=== PATIENT | female | born 1965 | race Caucasian/White ===

== ENCOUNTER 2025-04-01 10:57 | Emergency (ER) | payer BC ==
[2025-04-01 11:49] LABS: Absolute Lymphocytes (CBC) 1.4 K/uL (0.7-4.9); Hematocrit 32.1 % (36.0-45.0); Hemoglobin 10.6 g/dL (12.0-15.0); MCH 26.8 pg (27.0-35.0); MCHC 33.1 g/dL (32.0-36.0); MCV 81.1 fL (80-100); MPV 9.6 fL (7.6-11.3); Nucleated RBC Absolute Count 0.0 (0-0); Nucleated Red Blood Cells % 0.0 % (0-0); RBC Red Blood Cell Count 3.96 M/uL (3.86-4.86); White Blood Count 8.10 thou/uL (4.3-10.9)
[2025-04-01 12:00] LABS: PT Prothrombin Time 12.2 SECONDS (10-13.0); PTT, Activated Partial Thromb 24.2 SECONDS (27.2-37.4); Protime INR 1.08
[2025-04-01 12:10] LABS: ALT/SGPT 14 U/L (13-56); AST/SGOT 13 U/L (15-37); Alkaline Phosphatase 67 U/L (45-117); Anion Gap 11.7 mEq/L (5.0-15.0); BUN Blood Urea Nitrogen 32 mg/dL (7-18); Bilirubin Indirect, Calculated ND mg/dL (0.2-0.8); Glucose Level 341 mg/dL (74-106); Potassium 3.7 mEq/L (3.5-5.1)
[2025-04-01 12:11] LABS: Albumin 2.1 g/dL (3.4-5.0); Albumin/Globulin Ratio 0.6 (1.1-1.8); Globulin 3.5 g/dL (2.3-3.5)
--- NOTE | 2025-04-01 12:13 | ER ---
Nurse's Notes [facility] Name: Paty Cunningham Age: 59 yrs Sex: Female : 1965 Arrival Date: 04/01/2025 Time: 10:56 Bed 19 Private MD: Diagnosis: Suicidal ideations Presentation: 04/01 11:08 Acuity: CHANTAL 2 iw 11:08 Chief complaint: Patient states: has not been sleeping or eating, feels depressed, and iw suicidal, states she has been out of her meds for a month, wants to be transferred to [facility]. Coronavirus screen: At this time, the client does not indicate any symptoms associated with coronavirus-19. Ebola Screen: No symptoms or risks identified at this time. Initial Sepsis Screen: Does the patient meet any 2 criteria? No. Patient's initial sepsis screen is negative. Does the patient have a suspected source of infection? No. Patient's initial sepsis screen is negative. Risk Assessment: Do you want to hurt yourself or someone else? Patient reports desire/thoughts of hurting themselves or someone else. Provider notified. Onset of symptoms was April 01, 2025. 11:08 Method Of Arrival: EMS iw Historical: - Allergies: 11:49 No Known Allergies; iw - Home Meds: 11:46 amlodipine 5 mg tablet 1 tab daily for Hypertension [Active]; buspirone 5 mg Oral iw tablet 1 tab 3 times per day [Active]; fluoxetine 40 mg Oral capsule 1 cap daily [Active]; Lantus U-100 Insulin 100 unit/mL Sub-Q solution 25 units every morning for Type 1 Diabetes Mellitus [Active]; trazodone 50 mg Oral tablet 1 tab every day at bedtime [Active]; pravastatin 40 mg Oral tablet 1 tab daily [Active]; lisinopril 10 mg Oral tablet 1 tab daily [Active]; lamotrigine 100 mg Oral tablet 0.5 tabs 2 times per day [Active]; Keppra 750 mg Oral tablet 2 tabs 2 times per day [Active]; Humalog Pen 10 units SQ Sub-Q three times a day [Active]; - PMHx: 11:49 Anxiety; Bipolar disorder; depressive disorder; diabetes mellitus; Hypertensive iw disorder; muscular dystrophy; neuropathy; Schizophrenia; Seizure; mkbcezw-nvefn-acgjd (CMT); - PSHx: 11:49 RIGHT BKA; Cholecystectomy; section; iw - Immunization history:: Adult Immunizations up to date. - Infectious Disease History:: Denies. - Social history:: Smoking status: Patient/guardian denies using tobacco, but has a distant history of tobacco abuse. Screenin:30 [facility] ED Fall Risk Assessment (Adult) History of falling in the last 3 months, rg5 including since admission Yes- physiologic fall (2 pts) Confusion or Disorientation No (0 pts) Intoxicated or Sedated No (0 pts) Impaired Gait Yes (1 pt) Mobility Assist Device Used Yes (1 pt) Altered Elimination No (0 pt) Score/Fall Risk Level 3 or more points = High Risk Oriented to surroundings, Maintained a safe environment, Provided non-skid footwear, Hourly rounding (assess needs \\T\\ fall precautionary measures) done, Used ambulatory aids as needed (educated on \\T\\ assisted with). Abuse screen: Denies threats or abuse. Nutritional screening: No deficits noted. Tuberculosis screening: No symptoms or risk factors identified. Assessment: 11:08 General: Appears in no apparent distress. Behavior is calm, cooperative. Pain: Denies iw pain. Neuro: Level of Consciousness is awake, alert, obeys commands, Oriented to person, place, time, situation. Cardiovascular: Patient's skin is warm and dry. Respiratory: Respiratory effort is even, unlabored, Respiratory pattern is regular, symmetrical. GI: Abdomen is round obese, Abd is soft and non tender X 4 quads. Derm: Skin is intact, is healthy with good turgor. Musculoskeletal: Amputation of Right BKA Range of motion: intact in all extremities. 12:30 Reassessment: Patient and/or family updated on plan of care and expected duration. Pain rg5 level reassessed. Patient is alert, oriented x 3, equal unlabored respirations, skin warm/dry/pink. General: Appears in no apparent distress. comfortable, Behavior is calm, cooperative, appropriate for age. 13:35 Reassessment: No changes from previously documented assessment. Patient and/or family rg5 updated on plan of care and expected duration. Pain level reassessed. 14:25 Reassessment: Patient and/or family updated on plan of care and expected duration. Pain rg5 level reassessed. General: Appears in no apparent distress. comfortable. 15:26 Reassessment: Nurse to nurse report give to RN at [facility] of [place], will check her iw benefits and will call back for acceptance. 16:36 Reassessment: acceptance to [facility] per Razia CELESTE. iw 17:22 Reassessment: Patient and/or family updated on plan of care and expected duration. Pain rg5 level reassessed. Patient is alert, oriented x 3, equal unlabored respirations, skin warm/dry/pink. General: Appears in no apparent distress. comfortable, Behavior is calm, cooperative, appropriate for age. Psych: 11:08 [place] Suicide Severity Screening: In the past month, have you wished you were iw or wished you could go to sleep and not wake up? Patient responds "No." "In the past month, have you actually had any thoughts of killing yourself?" Patient responds "no." "In your lifetime, have you ever done anything, started to do anything, or prepared to do anything to end your life?" Patient responds "yes." Patient reports suicidal intent within 3 past months. Subjective: Patient's mood is sad, Delusions are denied, Hallucinations are Having thoughts of suicide. Objective: Patient is cooperative, Speech is normal, Affect is flat. Interventions: Patient placed in hospital gown. Safety Checks: Pt has been placed in a hallway bed/chair. Pt denies substance abuse. Commitment: Patient will be a voluntary commitment. Vital Signs: 11:23 BP 153 / 69; Pulse 66; Resp 16; Temp 98.1; Pulse Ox 99% on R/A; Weight 95.25 kg; Height iw 5 ft. 3 in. ; Pain 0/10; 17:55 BP 147 / 60; Pulse 65; Resp 18; Temp 98; Pulse Ox 96% ; Pain 0/10; rg5 11:23 Body Mass Index 37.20 (95.25 kg, 160.02 cm) iw 11:23 Pain Scale: Adult iw 17:55 Pain Scale: Adult rg5 ED Course: 10:56 Patient arrived in ED. bd 10:56 Awa Mercado PA-C is PHCP. sb4 10:56 Lata Torres MD is Attending Physician. sb4 11:00 Jo Ann Samuels, RN is Primary Nurse. iw 11:23 Triage completed. iw 11:45 Initial lab(s) drawn, by me, sent to lab. Inserted saline lock: 22 gauge in right iw antecubital area, using aseptic technique. Blood collected. Flushed with 10 mL NS. 11:49 Arm band placed on. iw 12:30 No provider procedures requiring assistance completed. rg5 12:30 Patient has correct armband on for positive identification. Bed in low position. Call rg5 light in reach. Side rails up X 1. Door closed. Noise minimized. Warm blanket given. 12:30 Provided Education on: needs for transfer. rg5 17:28 IV discontinued, bleeding controlled, No redness/swelling at site. Pressure dressing rg5 applied. 17:35 pt accepted in transfer to [facility] by dr tesha ribera admin approval given by juvencio mercado. Administered Medications: 12:40 Drug: NS 0.9% IV 1000 ml IV at 1000 ml once; to be given as a bolus over 60 minutes rg5 Route: IV; Rate: 1000 ml; Site: right antecubital; 13:35 Follow up: IV Status: Completed infusion; IV Intake: 1000ml rg5 Medication: 12:30 VIS not applicable for this client. rg5 Intake: 13:35 IV: 1000ml; Total: 1000ml. rg5 Outcome: 12:13 ER care complete, transfer ordered by . sb4 17:59 Transferred by ground EMS Note: [facility] facility rg5 17:59 Condition: stable 17:59 Discharge instructions given to EMS, 18:01 Patient left the ED. rg5 Signatures: Theresa Hi Irene, Awa Prince RN, PA-C PA-C sb4 Jorje Whiteside RN RN rg5
--- NOTE | 2025-04-01 12:13 | EDPHYS ---
Physician Documentation [facility] Name: Paty Cunningham Age: 59 yrs Sex: Female : 1965 Arrival Date: 04/01/2025 Time: 10:56 Bed 19 Private MD: ED Physician Lata Torres HPI: 04/01 11:35 This 59 yrs old Female presents to ER via Unassigned with complaints of Suicidal sb4 Ideation. 11:35 The patient presents to the emergency department with suicide ideation. sb4 Historical: - Allergies: 11:49 No Known Allergies; iw - Home Meds: 11:46 amlodipine 5 mg tablet 1 tab daily for Hypertension [Active]; buspirone 5 mg Oral iw tablet 1 tab 3 times per day [Active]; fluoxetine 40 mg Oral capsule 1 cap daily [Active]; Lantus U-100 Insulin 100 unit/mL Sub-Q solution 25 units every morning for Type 1 Diabetes Mellitus [Active]; trazodone 50 mg Oral tablet 1 tab every day at bedtime [Active]; pravastatin 40 mg Oral tablet 1 tab daily [Active]; lisinopril 10 mg Oral tablet 1 tab daily [Active]; lamotrigine 100 mg Oral tablet 0.5 tabs 2 times per day [Active]; Keppra 750 mg Oral tablet 2 tabs 2 times per day [Active]; Humalog Pen 10 units SQ Sub-Q three times a day [Active]; - PMHx: 11:49 Anxiety; Bipolar disorder; depressive disorder; diabetes mellitus; Hypertensive iw disorder; muscular dystrophy; neuropathy; Schizophrenia; Seizure; rnuavyj-bzdpq-hiioe (CMT); - PSHx: 11:49 RIGHT BKA; Cholecystectomy; section; iw - Immunization history:: Adult Immunizations up to date. - Infectious Disease History:: Denies. - Social history:: Smoking status: Patient/guardian denies using tobacco, but has a distant history of tobacco abuse. ROS: 12:29 Constitutional: Negative for fever, chills, and weight loss, sb4 12:29 Psych: Positive for suicidal ideation, 12:29 All other systems are negative, Exam: 12:29 Constitutional: This is a well developed, well nourished patient who is awake, alert, sb4 and in no acute distress. Head/Face: Normocephalic, atraumatic. Eyes: Extra-ocular motions intact. Periorbital areas with no swelling, redness, or edema. ENT: Mucous membranes moist. Respiratory: No increased work of breathing, no retractions or nasal flaring. Skin: Warm, dry with normal turgor. Normal color with no rashes, no lesions, and no evidence of cellulitis. Vital Signs: 11:23 BP 153 / 69; Pulse 66; Resp 16; Temp 98.1; Pulse Ox 99% on R/A; Weight 95.25 kg; Height iw 5 ft. 3 in. ; Pain 0/10; 17:55 BP 147 / 60; Pulse 65; Resp 18; Temp 98; Pulse Ox 96% ; Pain 0/10; rg5 11:23 Body Mass Index 37.20 (95.25 kg, 160.02 cm) iw 11:23 Pain Scale: Adult iw 17:55 Pain Scale: Adult rg5 MDM: 10:56 Medical Screening Exam initiated sb4 12:29 Data reviewed: vital signs, nurses notes, EMS record, lab test result(s), EKG. sb4 Counseling: I had a detailed discussion with the patient and/or guardian regarding the historical points, exam findings, and any diagnostic results supporting the discharge/admit diagnosis, the need to transfer to another facility, [facility] does not immediately have the required specialist. 04/01 11:13 Order name: Acetaminophen; Complete Time: 12:12 sb4 04/01 11:13 Order name: Basic Metabolic Panel; Complete Time: 12:12 sb4 04/01 11:13 Order name: CBC with Diff; Complete Time: 12:00 sb4 04/01 11:13 Order name: ETOH Level; Complete Time: 12:12 sb4 04/01 11:13 Order name: Hepatic Function; Complete Time: 12:12 sb4 04/01 11:13 Order name: PT-INR; Complete Time: 12:00 sb4 04/01 11:13 Order name: Ptt, Activated; Complete Time: 12:00 sb4 04/01 11:13 Order name: Salicylate; Complete Time: 12:21 sb4 04/01 11:13 Order name: Urine Drug Screen; Complete Time: 15:25 sb4 04/01 11:13 Order name: EKG - Nurse/Tech; Complete Time: 12:13 sb4 04/01 11:13 Order name: IV Saline Lock; Complete Time: 12:17 sb4 04/01 11:13 Order name: Labs collected and sent; Complete Time: 12:17 sb4 04/01 11:13 Order name: Suicide Precautions; Complete Time: 12:17 sb4 04/01 11:13 Order name: Suicide Screening ([place]); Complete Time: 12:17 sb4 EC:11 Rate is 64 beats/min. Rhythm is regular, Normal Sinus Rhythm. MT interval is normal at sb4 122 msec. QRS interval is normal at 76 msec. QT interval is normal at [address] changes noted. Clinical impression: No evidence of ischemia. Interpreted by me. Reviewed by me. Administered Medications: 12:40 Drug: NS 0.9% IV 1000 ml IV at 1000 ml once; to be given as a bolus over 60 minutes rg5 Route: IV; Rate: 1000 ml; Site: right antecubital; 13:35 Follow up: IV Status: Completed infusion; IV Intake: 1000ml rg5 Disposition Summary: 04/01/25 12:13 Transfer Ordered Notes: Transfer Location: Psych Facility sb4 Reason: Specialty sb4 Condition: Fair sb4 Problem: new sb4 Symptoms: are unchanged sb4 Accepting Physician: psych(04/01/25 18:01) rg5 Diagnosis - Suicidal ideations sb4 Forms: - Medication Reconciliation Form sb4 - SBAR form sb4 Signatures: Dispatcher [employer] EDJo Ann Garcia RN RN iw Brown, Sophia, PA-C PA-C sb4 Jorje Whiteside RN RN rg5 Corrections: (The following items were deleted from the chart) 11:14 11:13 ACETAMINOPHEN+C.LAB.BRZ ordered. EDMS EDMS 11:14 11:13 BASIC METABOLIC PANEL+C.LAB.BRZ ordered. EDMS EDMS 11:14 11:13 CBC+H.LAB.BRZ ordered. EDMS EDMS 11:14 11:13 ETHANOL+C.LAB.BRZ ordered. EDMS EDMS 11:14 11:13 HEPATIC FUNCTION+C.LAB.BRZ ordered. EDMS EDMS 11:14 11:13 PROTIME (+INR)+COAG.LAB.BRZ ordered. EDMS EDMS 11:14 11:13 PTT, ACTIVATED+COAG.LAB.BRZ ordered. EDMS EDMS 11:13 SALICYLATE+C.LAB.BRZ ordered. EDMS EDMS 11:14 URINE DRUG SCREEN+UC.LAB.BRZ ordered. EDMS EDMS 18:01 12:13 psych sb4 rg5
[2025-04-01] MEDS ORDERED: NA CHLORIDE 0.9% 1,000 ML ONE (12:31)
[2025-04-01 15:06] LABS: METHAMPHETAM NEGATIVE (NEGATIVE); THC Cannibis NEGATIVE (NEGATIVE)
[2025-04-01 18:18] VITALS: BP 147/60; TEMP 98; O2SAT 96
== END 2025-04-01 18:01 ==
LOC: ER 10:57
DX: R45.851 Suicidal ideations (principal); F31.9 Bipolar disorder, unspecified; F41.9 Anxiety disorder, unspecified; F20.9 Schizophrenia, unspecified; E11.9 Type 2 diabetes mellitus without complications; I10 Essential (primary) hypertension
CPT/HCPCS: 36415; 80048; 80076; 80143; 80179; 80307; 82077; 85025; 85610; 85730; 93005; 96360; 99285; J7030

== ENCOUNTER 2025-04-10 16:24 | Emergency (ER) | payer BC ==
[2025-04-10 16:58] LABS: Absolute Lymphocytes (CBC) 1.4 K/uL (0.7-4.9); Hematocrit 30.3 % (36.0-45.0); Hemoglobin 10.1 g/dL (12.0-15.0); MCH 27.0 pg (27.0-35.0); MCHC 33.2 g/dL (32.0-36.0); MCV 81.3 fL (80-100); MPV 9.4 fL (7.6-11.3); Nucleated RBC Absolute Count 0.0 (0-0); Nucleated Red Blood Cells % 0.1 % (0-0); RBC Red Blood Cell Count 3.72 M/uL (3.86-4.86); White Blood Count 7.20 thou/uL (4.3-10.9)
[2025-04-10] MEDS ORDERED: NA CHLORIDE 0.9% 1,000 ML ONE (17:00)
[2025-04-10 17:07] LABS: PT Prothrombin Time 11.7 SECONDS (10-13.0); PTT, Activated Partial Thromb 24.3 SECONDS (27.2-37.4); Protime INR 1.04
--- NOTE | 2025-04-10 17:32 | EDPHYS ---
Physician Documentation [facility] Name: Paty Cunningham Age: 59 yrs Sex: Female : 1965 Arrival Date: 04/10/2025 Time: 16:24 Bed 20 Private MD: ED Physician Zachariah Ramirez HPI: 04/10 17:20 This 59 yrs old Female presents to ER via EMS with complaints of Suicidal ethan Ideation. 17:20 The patient presents to the emergency department with anxiety, suicide ideation, and ethan the patient has a plan, to overdose with medications. Onset: The symptoms/episode began/occurred today. Past psychiatric history: Prior diagnosis: bipolar disorder, depression. Associated signs and symptoms: The patient has no apparent associated signs or symptoms. Severity of symptoms: At their worst the symptoms were moderate in the emergency department the symptoms are unchanged. The patient has experienced similar episodes in the past, multiple times. Historical: - Allergies: 16:38 No Known Allergies; ar8 - Home Meds: 17:47 amlodipine 5 mg tablet 1 tab daily for Hypertension [Active]; buspirone 5 mg Oral ar8 tablet 1 tab 3 times per day [Active]; fluoxetine 40 mg Oral capsule 1 cap daily [Active]; Humalog Pen 10 units SQ Sub-Q three times a day [Active]; Keppra 750 mg Oral tablet 2 tabs 2 times per day [Active]; lamotrigine 100 mg Oral tablet 0.5 tabs 2 times per day [Active]; Lantus U-100 Insulin 100 unit/mL Sub-Q solution 25 units every morning for Type 1 Diabetes Mellitus [Active]; lisinopril 10 mg Oral tablet 1 tab daily [Active]; pravastatin 40 mg Oral tablet 1 tab daily [Active]; trazodone 50 mg Oral tablet 1 tab every day at bedtime [Active]; - PMHx: 16:38 Anxiety; Bipolar disorder; bipyqbo-qktjz-rnbzn (CMT); qlfamdh-izsgh-qkivb (CMT); ar8 depressive disorder; diabetes mellitus; Hypertensive disorder; muscular dystrophy; neuropathy; Schizophrenia; Seizure; - PSHx: 16:38 section; Cholecystectomy; RIGHT BKA; ar8 - Immunization history:: Adult Immunizations up to date. - Infectious Disease History:: Denies. - Social history:: Smoking status: Patient denies any tobacco usage or history of. ROS: 17:21 Constitutional: Negative for fever, chills, and weight loss, Eyes: Negative for injury, ethan pain, redness, and discharge, ENT: Negative for injury, pain, and discharge, Neck: Negative for injury, pain, and swelling, Cardiovascular: Negative for chest pain, palpitations, and edema, Respiratory: Negative for shortness of breath, cough, wheezing, and pleuritic chest pain, Abdomen/GI: Negative for abdominal pain, nausea, vomiting, diarrhea, and constipation, Back: Negative for injury and pain, : Negative for injury, bleeding, discharge, and swelling, MS/Extremity: Negative for injury and deformity, Skin: Negative for injury, rash, and discoloration, Neuro: Negative for headache, weakness, numbness, tingling, and seizure, Allergy/Immunology: Negative for hives, rash, and allergies, Endocrine: Negative for neck swelling, polydipsia, polyuria, polyphagia, and marked weight changes, Hematologic/Lymphatic: Negative for swollen nodes, abnormal bleeding, and unusual bruising, 17:21 Psych: Positive for anxiety, depression, suicidal ideation, Exam: 17:21 Constitutional: This is a well developed, well nourished patient who is awake, alert, ethan and in no acute distress. Head/Face: Normocephalic, atraumatic. Eyes: Pupils equal round and reactive to light, extra-ocular motions intact. Lids and lashes normal. Conjunctiva and sclera are non-icteric and not injected. Cornea within normal limits. Periorbital areas with no swelling, redness, or edema. ENT: Nares patent. No nasal discharge, no septal abnormalities noted. Tympanic membranes are normal and external auditory canals are clear. Oropharynx with no redness, swelling, or masses, exudates, or evidence of obstruction, uvula midline. Mucous membranes moist. Neck: Trachea midline, no thyromegaly or masses palpated, and no cervical lymphadenopathy. Supple, full range of motion without nuchal rigidity, or vertebral point tenderness. No Meningismus. Chest/axilla: Normal chest wall appearance and motion. Nontender with no deformity. No lesions are appreciated. Cardiovascular: Regular rate and rhythm with a normal S1 and S2. No gallops, murmurs, or rubs. Normal PMI, no JVD. No pulse deficits. Respiratory: Lungs have equal breath sounds bilaterally, clear to auscultation and percussion. No rales, rhonchi or wheezes noted. No increased work of breathing, no retractions or nasal flaring. Abdomen/GI: Soft, non-tender, with normal bowel sounds. No distension or tympany. No guarding or rebound. No evidence of tenderness throughout. Back: No spinal tenderness. No costovertebral tenderness. Full range of motion. Skin: Warm, dry with normal turgor. Normal color with no rashes, no lesions, and no evidence of cellulitis. MS/ Extremity: Pulses equal, no cyanosis. Neurovascular intact. Full, normal range of motion., bilateral aka Neuro: Awake and alert, GCS 15, oriented to person, place, time, and situation. Cranial nerves II-XII grossly intact. Motor strength 5/5 in all extremities. Sensory grossly intact. Cerebellar exam normal. Normal gait. 17:21 ECG was reviewed by the Attending Physician. 17:21 Psych: Behavior/mood is anxious, suicidal, Affect is flat, Vital Signs: 16:25 BP 147 / 61; Pulse 72; Resp 18; Temp 98.5(O); Pulse Ox 99% on R/A; Weight 95.25 kg; ar8 Height 5 ft. 3 in. ; Pain 0/10; 17:45 BP 152 / 78; Pulse 79; Resp 18 S; Pulse Ox 98% on R/A; Pain 0/10; ar8 18:17 BP 158 / 7; Pulse 77; Resp 17; Pulse Ox 98% on R/A; Pain 0/10; ar8 19:12 BP 154 / 60; Pulse 64; Resp 18; Temp 97.5(O); Pulse Ox 97% on R/A; Weight 95.25 kg; tb4 Height 5 ft. 0 in. ; Pain 0/10; 04/11 06:12 BP 146 / 72; Pulse 69; Resp 17; Temp 97.5(O); Pulse Ox 100% on R/A; Pain 0/10; tb4 17:39 BP 161 / 63; Pulse 89; Resp 17; Pulse Ox 99% on R/A; ll1 20:00 BP 187 / 68; Pulse 76; Resp 18; Temp 98.9; Pulse Ox 100% ; lc1 04/12 06:57 BP 159 / 84; Pulse 72; Resp 17; Pulse Ox 98% on R/A; Pain 0/10; tb4 07:50 BP 156 / 71; Pulse 68; Resp 18; Temp 98.1; Pulse Ox 98% on R/A; Pain 0/10; ab3 09:31 BP 150 / 74; Pulse 68; Resp 18; Pulse Ox 98% on R/A; Pain 0/10; em1 17:20 BP 153 / 66; Pulse 63; Resp 16; Temp 97.7; Pulse Ox 99% on R/A; Pain 0/10; ab3 20:38 BP 182 / 75; Pulse 79; Resp 18; Temp 99; Pulse Ox 98% on R/A; Pain 0/10; sd4 04/13 07:30 BP 154 / 72; Pulse 68; Resp 18; Temp 97.1; Pulse Ox 99% ; ph 21:20 BP 159 / 66; Pulse 70; Resp 16; Temp 98.3; Pulse Ox 99% on R/A; rk3 04/14 11:37 BP 151 / 73; Pulse 72; Resp 16; Pulse Ox 97% ; bp 04/10 19:12 Body Mass Index 41.01 (95.25 kg, 152.4 cm) tb4 04/10 16:25 Pain Scale: Adult ar8 17:45 Pain Scale: Adult ar8 18:17 Pain Scale: Adult ar8 19:12 Pain Scale: Adult tb4 04/11 06:12 Pain Scale: Adult tb4 04/12 06:57 Pain Scale: Adult tb4 07:50 Pain Scale: Adult ab3 09:31 Pain Scale: Adult em1 17:20 Pain Scale: Adult ab3 20:38 Pain Scale: Adult sd4 MDM: 04/10 16:28 Medical Screening Exam initiated ethan 18:04 Differential diagnosis: drug withdrawal. acute psychotic break, depression, psychosis ethan secondary to non-compliance. Differential Diagnosis altered mental status, sepsis, flu. Data reviewed: vital signs, nurses notes, EKG. Consideration of Admission/Observation Patient was admitted/placed on observation. Escalation of care including admission/observation considered. I considered the following discharge prescriptions or medication management in the emergency department Medications were administered in the Emergency Department. See MAR. Independent interpretation of the following test(s) in the Emergency Department EKG: See my EKG interpretation above. Test considered but Not performed: CT: NO CT HEAD. Care significantly affected by the following chronic conditions: Hypertension, Obesity, BIPOLAR, DEPRESSION, CMT. 19:45 ED course: Patient care assumed from Dr. Mishra. Patient was just released from [address] Patient came home and became upset with her daughter and called ambulance for suicidal ideation. . 04/12 07:25 Counseling: I had a detailed discussion with the patient and/or guardian regarding the rn historical points, exam findings, and any diagnostic results supporting the discharge/admit diagnosis, lab results, the need to transfer to another facility. Response to treatment: the patient's symptoms have mildly improved after treatment, and as a result, I will admit patient. Awaiting: transfer to another facility. ED course: Patient resting comfortably, still awaiting transfer. No psychiatric open beds at this time. Morning insulin was ordered as well as Tylenol for mild headache. Will continue to monitor during transfer process.. 07:42 Transition of care: Care assumed from Khris Mishra MD. rn 04/13 07:05 ED course: Pt resting comfortably, vitals stable, still awaiting transfer. . rn 04/14 07:28 Transition of care: Care assumed from Khris Mishra MD. ED course: Patient reevaluated ms3 and is alert and orient x 4, no apparent distress, resting in bed. Patient is without complaints. Currently awaiting acceptance at [facility]. Patient states she remains suicidal without a plan.. 04/10 16:29 Order name: Acetaminophen; Complete Time: 19:[address] [facility] 04/10 16:29 Order name: Basic Metabolic Panel; Complete Time: 19:[address] [facility] 04/10 16:29 Order name: CBC with Diff; Complete Time: 19:[address] [facility] 04/10 16:29 Order name: ETOH Level; Complete Time: 19:[address] [facility] 04/10 16:29 Order name: Hepatic Function; Complete Time: 19:[address] [facility] 04/10 16:29 Order name: PT-INR; Complete Time: 19:29 ethan 04/10 16:29 Order name: Test, Urine; Complete Time: 19:[address] [facility] 04/10 16:29 Order name: Ptt, Activated; Complete Time: 19:[address] [facility] 04/10 16:29 Order name: Salicylate; Complete Time: 19:[address] [facility] 04/10 16:29 Order name: Urine Drug Screen; Complete Time: 19:[address] [facility] 04/10 16:29 Order name: UA Rfx Franck Cult if indicated; Complete Time: 19:29 ethan 04/10 19:33 Order name: BMP; Complete Time: 00:44 sp4 04/10 19:33 Order name: CK; Complete Time: 00:44 sp4 04/11 03:36 Order name: Glucose, Ancillary Testing; Complete Time: 05:10 EDMS 04/11 21:58 Order name: Glucose, Ancillary Testing; Complete Time: 07:24 EDMS 04/11 22:45 Order name: Glucose, Ancillary Testing; Complete Time: 07:24 EDMS 04/12 01:25 Order name: Glucose, Ancillary Testing; Complete Time: 07:24 EDMS 04/12 08:30 Order name: Glucose, Ancillary Testing; Complete Time: 08:44 EDMS 04/12 08:59 Order name: BMP; Complete Time: 09:45 eb 04/12 17:20 Order name: Glucose, Ancillary Testing; Complete Time: 17:37 EDMS 04/13 08:47 Order name: glucometer results - FOR PT WITH NO ID; Complete Time: 16:34 em1 04/13 08:58 Order name: Glucose, Ancillary Testing; Complete Time: 10:47 EDMS 04/13 21:36 Order name: Glucose, Ancillary Testing EDMN 04/14 00:58 Order name: Glucose, Ancillary Testing EDMN 04/14 01:00 Order name: Glucose, Ancillary Testing EDMN 04/14 07:13 Order name: Glucose, Ancillary Testing EDMN 04/10 16:29 Order name: EKG - Nurse/Tech; Complete Time: 16:[address] [facility] 04/10 16:29 Order name: IV Saline Lock; Complete Time: 16:[address] [facility] 04/10 16:29 Order name: Labs collected and sent; Complete Time: 16:[address] [facility] 04/10 16:29 Order name: Suicide Precautions; Complete Time: 16:[address] [facility] 04/10 16:29 Order name: Suicide Screening ([place]); Complete Time: 16:[address] [facility] 04/11 21:49 Order name: Recheck Blood Sugar: recheck in 30 minutes; Complete Time: 22:36 vc1 04/12 01:42 Order name: Fingerstick Glucose: In the morning before breakfast; Complete Time: 08:50 tb4 04/12 01:43 Order name: Fingerstick Glucose: In the evening before dinner; Complete Time: 09:05 tb4 EC/21 17:21 Rate is 67 beats/min. Rhythm is regular. QRS [place] is Normal. HI interval is normal. QRS ethan interval is normal. QT interval is normal. No Q waves. T waves are Normal. No ST changes noted. Interpreted by me. Reviewed by me. Administered Medications: 17:03 Drug: NS 0.9% IV 1000 ml IV at 1 bolus Per protocol; to be given as a bolus over 60 ar8 minutes Route: IV; Rate: 1 bolus; Site: right antecubital; 20:38 Follow up: Response: No adverse reaction; IV Status: Completed infusion tb4 04/11 01:17 Drug: Insulin Regular Human Sub-Q 10 units Sub-Q once {Co-Signature: al5 (barrie Michelle4 Denae RN).} Route: Sub-Q; Site: abdomen; 03:16 Follow up: Response: No adverse reaction; Blood sugar is lowered tb4 20:33 Drug: Acetaminophen PO 1000 mg PO once Route: PO; tb4 21:37 Follow up: Response: No adverse reaction; Pain is decreased tb4 22:03 Drug: Insulin Regular Human IVP 10 units IVP once {Co-Signature: kd4 (Jason Deleon 4 RN).} Route: IVP; Site: right antecubital; 22:44 Follow up: Response: No adverse reaction; Blood sugar is lowered tb4 22:29 Drug: Insulin Glargine Sub-Q 30 units Sub-Q once {Co-Signature: lc1 (Nilam Acharya).} tb4 Route: Sub-Q; Site: abdomen; 22:44 Follow up: Response: No adverse reaction tb4 04/12 00:55 Drug: Keppra IV 1000 mg IV at calculated rate once Route: IV; Rate: calculated rate; tb4 Site: right antecubital; 01:35 Follow up: Response: No adverse reaction; IV Status: Completed infusion tb4 08:41 Drug: Insulin Regular Human Sub-Q 20 units Sub-Q once; Taken every morning ab3 {Co-Signature: [email or web address] (Mandi Rosas RN).} Route: Sub-Q; Site: right upper arm; 09:04 Follow up: Response: No adverse reaction ab3 08:43 Drug: Keppra PO 750 mg PO See Administration Instructions; Start 04/12/25 BID Route: PO; ab3 09:05 Follow up: Response: No adverse reaction ab3 20:35 Drug: Insulin Glargine Sub-Q 25 units Sub-Q See Administration Instructions; Take sd4 nightly {Co-Signature: kd4 (Jason Deleon RN).} Route: Sub-Q; Site: left upper arm; 04/14 11:38 Follow up: Response: No adverse reaction bp 04/13 09:18 Drug: Keppra PO 750 mg PO once Route: PO; ph 11:27 Follow up: Response: No adverse reaction ph 09:18 Drug: Insulin Glargine Sub-Q 15 units Sub-Q once {Co-Signature: af3 (Ludivina Landaverde RN).} ph Route: Sub-Q; Site: left upper arm; 11:27 Follow up: Response: No adverse reaction ph 23:17 Drug: Keppra PO 750 mg PO once; BID. First dose given this morning and second dose tb4 given now Route: PO; 04/14 00:39 Follow up: Response: No adverse reaction tb4 04/13 23:18 Drug: Insulin Regular Human Sub-Q 10 units Sub-Q once {Co-Signature: lg3 (Paradise Cole tb4 RN).} Route: Sub-Q; Site: abdomen; 04/14 02:56 Follow up: Response: No adverse reaction; Blood sugar is lowered; BGL 254 tb4 Point of Care Testing: Blood Glucose: 04/11 03:27 Blood Glucose: 261 mg/dL; tb4 21:49 Blood Glucose: 428 mg/dL; tb4 22:35 Blood Glucose: 364 mg/dL; tb4 04/12 01:15 Blood Glucose: 302 mg/dL; tb4 04/13 21:29 Blood Glucose: 311 mg/dL; tb4 23:00 Blood Glucose: 254 mg/dL; tb4 Ranges: Critical Glucose Levels:Adult <50 mg/dl or >400 mg/dl <40 mg/dl or >180 mg/dl Disposition Summary: 04/10/25 17:31 Transfer Ordered Notes: Transfer Location: [facility] ethan Reason: Higher level of care ethan Condition: Fair ethan Problem: new ethan Symptoms: have improved ethan Accepting Physician: Dr. (04/14/25 11:41) bp Diagnosis - Suicidal ideations ethan - Bipolar disorder, current episode depressed, moderate ethan - Major depressive disorder, recurrent, moderate ethan Forms: - Medication Reconciliation Form ethan - SBAR form ethan Signatures: Dispatcher [employer] EDMS Khris Mishra MD MD cha Nieto, Roman, MD MD rn Hall, Leanna, RN RN ph Kane, Abrahan, RN RN bp Jennie Bryan Marcus, DO ms3 Gaby Yadav, RN RN vc1 Joaquín Garcia MD MD sp4 Radha Bradford, RN RN ab3 Ben, James, [employer] SERVICE TECHNICIAN-C [employer] SERVICE TECHNICIAN-Cdr5 Destiny Mercado, RN RN tb4 Shelby, Celine, RN RN sd4 Tarik Rojas, RN RN ar8 Miguel Angel, Denae CELESTE al5 Pancho, Jason RN kd4 Marck, Nilam lc1 Ralph, Mandi RN cm10 Ludivina Landaverde RN af3 Douglas, Paradise CELESTE lg3 Corrections: (The following items were deleted from the chart) 04/10 16:30 16:30 ACETAMINOPHEN+C.LAB.BRZ ordered. EDMS EDMS 16:30 16:30 BASIC METABOLIC PANEL+C.LAB.BRZ ordered. EDMS EDMS 16:30 16:30 CBC+H.LAB.BRZ ordered. EDMS EDMS 16:30 16:30 ETHANOL+C.LAB.BRZ ordered. EDMS EDMS 16:30 16:30 HEPATIC FUNCTION+C.LAB.BRZ ordered. EDMS EDMS 16:30 16:30 PROTIME (+INR)+COAG.LAB.BRZ ordered. EDMS EDMS 16:30 16:30 Test, Urine+UC.LAB.BRZ ordered. EDMS EDMS 16:30 16:30 PTT, ACTIVATED+COAG.LAB.BRZ ordered. EDMS EDMS 16:30 16:30 SALICYLATE+C.LAB.BRZ ordered. EDMS EDMS 16:30 16:30 URINE DRUG SCREEN+UC.LAB.BRZ ordered. EDMS EDMS 16:30 16:30 UA Rfx Franck Cult if indicated+U.LAB.BRZ ordered. EDMS EDMS 19:33 19:33 BASIC METABOLIC PANEL+C.LAB.BRZ ordered. EDMS EDMS :33 19:33 CREATINE PHOSPHOKINASE+C.LAB.BRZ ordered. EDMS EDMN 04/12 08:56 04/10 17:31 to [facility] 04/12 09:19 08:56 Dr. Marta Alexander [facility] 04/14 11:41 04/12 09:19 Dr. mendenhall
--- NOTE | 2025-04-10 17:32 | ER ---
Nurse's Notes [facility] Name: Paty Cunningham Age: 59 yrs Sex: Female : 1965 Arrival Date: 04/10/2025 Time: 16:24 Bed 20 Private MD: Diagnosis: Suicidal ideations;Bipolar disorder, current episode depressed, moderate;Major depressive disorder, recurrent, moderate Presentation: 04/10 16:25 Chief complaint: Patient states: C/O SI and wanting to take "a bunch of pills to ar8 overdose.". Patient was discharged from [facility] earlier this afternoon. Per EMS, she got home and got into a verbal altercation with her daughter and stated that she wanted to take pills to overdose. Patient is requesting to be sent back to [facility]. Coronavirus screen: At this time, the client does not indicate any symptoms associated with coronavirus-19. Ebola Screen: No symptoms or risks identified at this time. 16:25 Method Of Arrival: [facility]: [facility] ar8 16:25 Initial Sepsis Screen: Does the patient meet any 2 criteria? No. Patient's initial ar8 sepsis screen is negative. Does the patient have a suspected source of infection? No. Patient's initial sepsis screen is negative. Risk Assessment: Do you want to hurt yourself or someone else? Patient reports desire/thoughts of hurting themselves or someone else. Provider notified. Onset of symptoms was April 10, 2025 at 15:30. 16:25 Acuity: CHANTAL 3 ar8 Triage Assessment: 16:38 General: Appears in no apparent distress. Behavior is calm, cooperative. Pain: Denies ar8 pain. Neuro: No deficits noted. Level of Consciousness is awake, alert, obeys commands, Oriented to person, place, time, situation. Respiratory: No deficits noted. Airway is patent Respiratory effort is even, unlabored, Respiratory pattern is regular, symmetrical. Historical: - Allergies: 16:38 No Known Allergies; ar8 - Home Meds: 17:47 amlodipine 5 mg tablet 1 tab daily for Hypertension [Active]; buspirone 5 mg Oral ar8 tablet 1 tab 3 times per day [Active]; fluoxetine 40 mg Oral capsule 1 cap daily [Active]; Humalog Pen 10 units SQ Sub-Q three times a day [Active]; Keppra 750 mg Oral tablet 2 tabs 2 times per day [Active]; lamotrigine 100 mg Oral tablet 0.5 tabs 2 times per day [Active]; Lantus U-100 Insulin 100 unit/mL Sub-Q solution 25 units every morning for Type 1 Diabetes Mellitus [Active]; lisinopril 10 mg Oral tablet 1 tab daily [Active]; pravastatin 40 mg Oral tablet 1 tab daily [Active]; trazodone 50 mg Oral tablet 1 tab every day at bedtime [Active]; - PMHx: 16:38 Anxiety; Bipolar disorder; emvgtfk-fvjdx-sspqf (CMT); vhechqf-jhwkx-hczrc (CMT); ar8 depressive disorder; diabetes mellitus; Hypertensive disorder; muscular dystrophy; neuropathy; Schizophrenia; Seizure; - PSHx: 16:38 section; Cholecystectomy; RIGHT BKA; ar8 - Immunization history:: Adult Immunizations up to date. - Infectious Disease History:: Denies. - Social history:: Smoking status: Patient denies any tobacco usage or history of. Screenin:39 [facility] ED Fall Risk Assessment (Adult) History of falling in the last 3 months, ar8 including since admission No falls in past 3 months (0 pts) Confusion or Disorientation No (0 pts) Intoxicated or Sedated No (0 pts) Impaired Gait Yes (1 pt) Mobility Assist Device Used Yes (1 pt) Altered Elimination No (0 pt) Score/Fall Risk Level 0 - 2 = Low Risk Oriented to surroundings, Maintained a safe environment. Abuse screen: Denies threats or abuse. Nutritional screening: No deficits noted. Tuberculosis screening: No symptoms or risk factors identified. 20:21 [facility] ED Fall Risk Assessment (Adult) History of falling in the last 3 months, tb4 including since admission No falls in past 3 months (0 pts) Confusion or Disorientation No (0 pts) Intoxicated or Sedated No (0 pts) Impaired Gait Yes (1 pt) Mobility Assist Device Used Yes (1 pt) Altered Elimination No (0 pt) Score/Fall Risk Level 0 - 2 = Low Risk Oriented to surroundings, Maintained a safe environment. 04/11 20:12 [facility] ED Fall Risk Assessment (Adult) History of falling in the last 3 months, tb4 including since admission No falls in past 3 months (0 pts) Confusion or Disorientation No (0 pts) Intoxicated or Sedated No (0 pts) Impaired Gait Yes (1 pt) Mobility Assist Device Used Yes (1 pt) Altered Elimination No (0 pt) Score/Fall Risk Level 0 - 2 = Low Risk Oriented to surroundings, Maintained a safe environment. Abuse screen: Denies threats or abuse. Nutritional screening: No deficits noted. Tuberculosis screening: No symptoms or risk factors identified. Assessment: 04/10 16:39 Reassessment: see triage assessment. ar8 17:46 Reassessment: Patient and/or family updated on plan of care and expected duration. Pain ar8 level reassessed. Patient is alert, oriented x 3, equal unlabored respirations, skin warm/dry/pink. General: Behavior is cooperative. 18:17 Reassessment:. ar8 20:21 Reassessment: Patient is alert, oriented x 3, equal unlabored respirations, skin tb4 warm/dry/pink. Patient denies pain at this time. General: Appears comfortable, Behavior is cooperative. Pain: Denies pain. Neuro: Level of Consciousness is awake, alert, obeys commands, Oriented to person, place, time, situation, Education Faculty Member are equal bilaterally Moves all extremities. Full function Weakness in right due to amputation. . Gait is patient uses a wheelchair due to right foot amputation. Speech is normal, Facial symmetry appears normal. Respiratory: No deficits noted. Airway is patent Respiratory effort is even, unlabored, Respiratory pattern is regular, symmetrical. GI: No signs and/or symptoms were reported involving the gastrointestinal system. : No signs and/or symptoms were reported regarding the genitourinary system. EENT: No signs and/or symptoms were reported regarding the EENT system. Derm: No signs and/or symptoms reported regarding the dermatologic system. Skin is intact, is healthy with good turgor, Skin is dry, Skin is normal, Skin temperature is warm. Musculoskeletal: Amputation of medial aspect of right calf, right ankle and medial aspect of right foot. Circulation, motion, and sensation intact. Range of motion: intact in all extremities. 23:45 Reassessment: Patient was assisted to restroom via wheel chair. tb4 04/11 03:16 Reassessment: Patient assisted to restroom. tb4 05:41 Reassessment: Patient was assisted to the rest room and assisted back to bed. She tb4 denies pain 10/10, no s/s of distress noted. 07:00 Reassessment: Report received from shift manager RN. Sitter at . ll1 08:30 General: Appears in no apparent distress. Behavior is calm, cooperative, appropriate ll1 for age. General: Reports still having SI. Pain: Denies pain. 17:41 Reassessment: No changes from previously documented assessment. Patient and/or family ll1 updated on plan of care and expected duration. Pain level reassessed. Patient is alert, oriented x 3, equal unlabored respirations, skin warm/dry/pink. 20:12 Reassessment: Patient is alert, oriented x 3, equal unlabored respirations, skin tb4 warm/dry/pink. Patient denies pain at this time. General: Appears in no apparent distress. comfortable, Behavior is calm, cooperative, Reports Still feeling suicidal. Pain: Denies pain. Neuro: Level of Consciousness is awake, alert, obeys commands, Oriented to person, place, time, situation, Education Faculty Member are equal bilaterally Moves all extremities. Full function Weakness in right leg(s) foot/feet Gait is Patient uses a wheelchair. Speech is normal, Facial symmetry appears normal. Respiratory: No deficits noted. Airway is patent Respiratory effort is even, unlabored, Respiratory pattern is regular, symmetrical. GI: No signs and/or symptoms were reported involving the gastrointestinal system. : No signs and/or symptoms were reported regarding the genitourinary system. EENT: No signs and/or symptoms were reported regarding the EENT system. Derm: Skin is intact, is healthy with good turgor, Skin is dry, Skin is normal, Skin temperature is warm. Musculoskeletal: Amputation of medial aspect of right calf, right ankle and medial aspect of right foot. Circulation, motion, and sensation intact. Range of motion: intact in all extremities. 20:34 Reassessment: Patient c/o headache 10/10, Tylenol give, will continue to monitor. tb4 21:37 Reassessment: Patient denies pain at this time. Patient states feeling better. Patient tb4 states symptoms have improved. was assisted to the restroom.. 22:36 Reassessment: Patient remains stable, will continue to monitor. tb4 04/12 05:34 Reassessment: Patient in bed with eyes closed, s/s of distress noted, respiration even tb4 and unlabored. Will continue to monitor. 07:50 General: Appears in no apparent distress. comfortable. General:. Pain: Denies pain. ab3 Neuro: No deficits noted. Cardiovascular: No deficits noted. Respiratory: No deficits noted. GI: No signs and/or symptoms were reported involving the gastrointestinal system. : No signs and/or symptoms were reported regarding the genitourinary system. 08:10 General: Pt continues to report SI with plan, stating "I could just take a bunch of ab3 pills". Pt states she has not acted on this, but continues to have SI. Pt denies HI/AVH at present and remains calm and cooperative with matching affect at present. . 08:15 Reassessment: Report given to ROULA Philippe at [facility]; RN states ab3 to callback with whether pt is accepted or not based on eGFR. 08:30 Reassessment: ROULA Philippe calls back and notifies pt accepted to [facility] in [place]. MOT signed by pt and RN. . 08:49 Reassessment: Pt eating breakfast (behavioral safety tray); sitter remains at BS. Area ab3 remains safe and free from hazards. Pt awaiting transport to [facility]. 09:10 Reassessment: Per Body Straightener, [facility] called back and WITHDREW ab3 ACCEPTANCE based on eGFR/Labs. Pt notified; states understanding. Pt denies needs; now awaiting an accepting facility. Sitter Remains at BS; area remains safe and free from hazards. 11:00 Reassessment: Pt resting in NAD with eyes closed, respirations regular, even and ab3 unlabored. Pt denies needs and continues to await accepting facility. Sitter remains at BS; area remains safe and free from hazards. 13:01 Reassessment: Patient appears in no apparent distress at this time. Pt just finished ab3 lunch safety tray and without additional needs at present. Pt continues to await facility acceptance. Sitter remains at BS; area remains safe and free from hazards. 15:00 Reassessment: Patient appears in no apparent distress at this time. Pt resting with ab3 eyes closed, respirations regular, even and unlabored. Pt continues to await facility acceptance with Sitter at BS; area remains safe and free from hazards. 17:00 Reassessment: Patient appears in no apparent distress at this time. No changes from ab3 previously documented assessment. Pt continues to await psych facility placement. Pt requests dinner tray. Pt informed dinner safety tray ordered and to give to pt when arrives after BG is assessed; pt states understanding. Sitter remains at BS, area remains safe and free from hazards. Patient denies pain at this time. 17:32 Reassessment: BG done; see result. Dinner safety tray given to pt. Pt in NAD with VSS. ab3 Sitter remains at BS; area remains safe and free from hazards. 19:08 Reassessment: Pt in NAD, eating dinner safety tray. Pt denies other needs at present, ab3 and continues to await psych facility placement. Sitter remains at BS; area remains safe and free from hazards. 20:07 Reassessment: Patient and/or family updated on plan of care and expected duration. Pain sd4 level reassessed. Patient is alert, oriented x 3, equal unlabored respirations, skin warm/dry/pink. Pt denies any needs at this time Patient denies pain at this time. General: Appears in no apparent distress. comfortable, Behavior is calm, cooperative, Reports. Pain: Denies pain. Neuro: No deficits noted. Level of Consciousness is awake, alert, obeys commands, Oriented to person, place, time, situation, Education Faculty Member are Cardiovascular: No deficits noted. Respiratory: No deficits noted. Airway is patent Respiratory effort is even, unlabored, Respiratory pattern is regular, symmetrical. GI: No deficits noted. No signs and/or symptoms were reported involving the gastrointestinal system. : No deficits noted. No signs and/or symptoms were reported regarding the genitourinary system. EENT: No deficits noted. No signs and/or symptoms were reported regarding the EENT system. Derm: No signs and/or symptoms reported regarding the dermatologic system. Skin is intact, is healthy with good turgor, Skin is dry, Skin is pink, warm \\T\\ dry. normal, Skin temperature is warm. Musculoskeletal: Amputation of right leg. 22:00 Reassessment: Patient resting. Went to restroom within the past hour. No signs of sd4 distress. 22:00 Reassessment: No changes from previously documented assessment. Patient and/or family sd4 updated on plan of care and expected duration. Pain level reassessed. 04/13 00:00 Reassessment: No changes from previously documented assessment. Patient and/or family sd4 updated on plan of care and expected duration. Pain level reassessed. Patient is alert, oriented x 3, equal unlabored respirations, skin warm/dry/pink. Pt resting. No signs of distress. 02:33 Reassessment: No changes from previously documented assessment. Patient and/or family sd4 updated on plan of care and expected duration. Pain level reassessed. Patient is alert, oriented x 3, equal unlabored respirations, skin warm/dry/pink. Pt resting. No signs of distress. 04:00 Reassessment: No changes from previously documented assessment. Patient and/or family sd4 updated on plan of care and expected duration. Pain level reassessed. Patient is alert, oriented x 3, equal unlabored respirations, skin warm/dry/pink. pt resting. Went to restroom twice. 06:00 Reassessment: No changes from previously documented assessment. Patient and/or family sd4 updated on plan of care and expected duration. Pain level reassessed. Patient is alert, oriented x 3, equal unlabored respirations, skin warm/dry/pink. Pt resting. No signs of distress noted. 07:05 General: Appears in no apparent distress. comfortable, Behavior is calm, cooperative. ph Pain: Denies pain. Neuro: Level of Consciousness is awake, alert, obeys commands, Oriented to person, place, time, situation. Cardiovascular: Capillary refill < 3 seconds in bilateral fingers Patient's skin is warm and dry. Respiratory: Airway is patent Respiratory effort is even, unlabored, Respiratory pattern is regular, symmetrical. GI: No signs and/or symptoms were reported involving the gastrointestinal system. Derm: Skin is pink, warm \\T\\ dry. Musculoskeletal: Amputation of right leg. 09:00 Reassessment: Patient appears in no apparent distress at this time. Patient and/or ph family updated on plan of care and expected duration. Pain level reassessed. Patient is alert, oriented x 3, equal unlabored respirations, skin warm/dry/pink. 11:05 Reassessment: Counselor from [facility] at bedside to speak w/ pt. ph 12:30 Reassessment: Patient appears in no apparent distress at this time. Patient and/or ph family updated on plan of care and expected duration. Pain level reassessed. Pt eating lunch, requesting to watch TV. 14:00 Reassessment: Patient appears in no apparent distress at this time. No changes from ph previously documented assessment. Patient and/or family updated on plan of care and expected duration. Pain level reassessed. Patient is alert, oriented x 3, equal unlabored respirations, skin warm/dry/pink. 19:19 General: Appears in no apparent distress. comfortable, Behavior is calm, cooperative. tb4 Pain: Denies pain. Neuro: Level of Consciousness is awake, alert, obeys commands, Oriented to person, place, time, situation, Education Faculty Member are equal bilaterally Moves all extremities. Full function Weakness in left leg(s) right leg amputated. Gait is unsteady, patient uses a wheelchair. Speech is normal, Facial symmetry appears normal. Respiratory: Airway is patent Respiratory effort is even, unlabored, Respiratory pattern is regular, symmetrical. GI: No signs and/or symptoms were reported involving the gastrointestinal system. : No signs and/or symptoms were reported regarding the genitourinary system. EENT: No signs and/or symptoms were reported regarding the EENT system. Derm: No signs and/or symptoms reported regarding the dermatologic system. Skin is intact, is healthy with good turgor, Skin is dry, Skin is normal, Skin temperature is warm. Musculoskeletal: No signs and/or symptoms reported regarding the musculoskeletal system. Amputation of medial aspect of right calf, right ankle and medial aspect of right foot. Circulation, motion, and sensation intact. Range of motion: intact in all extremities. 21:55 Reassessment: Patient go up to use restroom. tb4 04/14 02:53 Reassessment: Patient up to use restroom then assisted back to bed. tb4 11:37 Reassessment: EMS AT B/S FOR TRANSPORT. bp Psych: 04/10 20:14 [place] Suicide Severity Screening: In the past month, have you wished you were tb4 or wished you could go to sleep and not wake up? Patient responds "yes." "In the past month, have you actually had any thoughts of killing yourself?" Patient responds "yes." "In your lifetime, have you ever done anything, started to do anything, or prepared to do anything to end your life?" Patient responds "no.". Subjective: Patient's mood is sad, hopeless. Objective: Patient is cooperative, using poor eye contact, Speech is normal, Affect is flat. Interventions: Removed personal items and placed in bag. Patient placed in hospital gown. Searched person for dangerous items. Belonging list filled out. Patient reassessed during use of restraints. Patient is physically safe. Patient nutrition and hydration needs will continue to be monitored and addressed. Patient hygiene and elimination needs met. Patient assessed for signs of distress. Patient remains reasonably comfortable at this time. Safety Checks: Personal items have been removed. Door is open. No visitors are present at this time. Patient in bed with eyes open, no s/s of distress noted, continuing to monitor. Pt denies substance abuse. Commitment: Patient will be a voluntary commitment. 04/11 20:18 [place] Suicide Severity Screening: In the past month, have you wished you were tb4 or wished you could go to sleep and not wake up? Patient responds "yes." "In the past month, have you actually had any thoughts of killing yourself?" Patient responds "yes." "In your lifetime, have you ever done anything, started to do anything, or prepared to do anything to end your life?" Patient responds "no.". Subjective: Patient's mood is sad, hopeless. Objective: Patient is cooperative, using poor eye contact, Speech is normal, Affect is flat. Interventions: Removed personal items and placed in bag. Patient placed in hospital gown. Searched person for dangerous items. Patient reassessed during use of restraints. Patient is physically safe. Patient nutrition and hydration needs will continue to be monitored and addressed. Patient hygiene and elimination needs met. Patient assessed for signs of distress. Patient remains reasonably comfortable at this time. Safety Checks: Personal items have been removed. Pt denies substance abuse. 04/12 07:00 [place] Suicide Severity Screening: In the past month, have you wished you were tb4 or wished you could go to sleep and not wake up? Patient responds "yes." "In the past month, have you actually had any thoughts of killing yourself?" Patient responds "yes." "In your lifetime, have you ever done anything, started to do anything, or prepared to do anything to end your life?" Patient responds "no.". Subjective: Patient's mood is sad, hopeless. Objective: Patient is cooperative, Speech is normal, Affect is flat. Interventions: Removed personal items and placed in bag. Patient placed in hospital gown. Searched person for dangerous items. Belonging list filled out. Patient reassessed during use of restraints. Patient is physically safe. Patient nutrition and hydration needs will continue to be monitored and addressed. Patient hygiene and elimination needs met. Patient assessed for signs of distress. Patient remains reasonably comfortable at this time. Safety Checks: Personal items have been removed. Door is open. No visitors are present at this time. Pt denies substance abuse. 20:03 [place] Suicide Severity Screening: In the past month, have you wished you were sd4 or wished you could go to sleep and not wake up? Patient responds "yes." Based off the client's responses additional C-SSRS screening is required. "In the past month, have you actually had any thoughts of killing yourself?" Patient responds "yes." "In your lifetime, have you ever done anything, started to do anything, or prepared to do anything to end your life?" Patient responds "yes." Patient reports suicidal intent within 3 past months. Subjective: Patient's mood is hopeless, Delusions are. Objective: Patient is cooperative, Speech is normal, Affect is appropriate. Interventions: Removed personal items and placed in bag. Patient placed in hospital gown. Searched person for dangerous items. Belonging list filled out. Patient reassessed during use of restraints. Patient is physically safe. Patient's cardiac status is stable. Patient's respirations are even and unlabored. Patient has good circulation in all extremities as indicated by capillary refill < 3 seconds. Patient's ROM assessed and is intact. Patient nutrition and hydration needs will continue to be monitored and addressed. Patient hygiene and elimination needs met. Patient assessed for signs of distress. Patient remains reasonably comfortable at this time. Safety Checks: Personal items have been removed. Door is open. No visitors are present at this time. Sitter at bedside. Commitment: Patient will be a voluntary commitment. 04/13 19:58 [place] Suicide Severity Screening: In the past month, have you wished you were tb4 or wished you could go to sleep and not wake up? Patient responds "yes." "In the past month, have you actually had any thoughts of killing yourself?" Patient responds "yes." "In your lifetime, have you ever done anything, started to do anything, or prepared to do anything to end your life?" Patient responds "yes." Patient reports suicidal intent within 3 past months. Subjective: Patient's mood is sad, hopeless, Delusions are denied, Hallucinations are denied Having thoughts of suicide. Plan for suicide is to take pills. Objective: Patient is cooperative, Speech is normal, Affect is appropriate, flat. Interventions: Removed personal items and placed in bag. Patient placed in hospital gown. Searched person for dangerous items. Belonging list filled out. Patient reassessed during use of restraints. Patient is physically safe. Safety Checks: Personal items have been removed. Door is open. No visitors are present at this time. Pt denies substance abuse. Vital Signs: 04/10 16:25 BP 147 / 61; Pulse 72; Resp 18; Temp 98.5(O); Pulse Ox 99% on R/A; Weight 95.25 kg; ar8 Height 5 ft. 3 in. ; Pain 0/10; 17:45 BP 152 / 78; Pulse 79; Resp 18 S; Pulse Ox 98% on R/A; Pain 0/10; ar8 18:17 BP 158 / 7; Pulse 77; Resp 17; Pulse Ox 98% on R/A; Pain 0/10; ar8 19:12 BP 154 / 60; Pulse 64; Resp 18; Temp 97.5(O); Pulse Ox 97% on R/A; Weight 95.25 kg; tb4 Height 5 ft. 0 in. ; Pain 0/10; 04/11 06:12 BP 146 / 72; Pulse 69; Resp 17; Temp 97.5(O); Pulse Ox 100% on R/A; Pain 0/10; tb4 17:39 BP 161 / 63; Pulse 89; Resp 17; Pulse Ox 99% on R/A; ll1 20:00 BP 187 / 68; Pulse 76; Resp 18; Temp 98.9; Pulse Ox 100% ; lc1 04/12 06:57 BP 159 / 84; Pulse 72; Resp 17; Pulse Ox 98% on R/A; Pain 0/10; tb4 07:50 BP 156 / 71; Pulse 68; Resp 18; Temp 98.1; Pulse Ox 98% on R/A; Pain 0/10; ab3 09:31 BP 150 / 74; Pulse 68; Resp 18; Pulse Ox 98% on R/A; Pain 0/10; em1 17:20 BP 153 / 66; Pulse 63; Resp 16; Temp 97.7; Pulse Ox 99% on R/A; Pain 0/10; ab3 20:38 BP 182 / 75; Pulse 79; Resp 18; Temp 99; Pulse Ox 98% on R/A; Pain 0/10; sd4 04/13 07:30 BP 154 / 72; Pulse 68; Resp 18; Temp 97.1; Pulse Ox 99% ; ph 21:20 BP 159 / 66; Pulse 70; Resp 16; Temp 98.3; Pulse Ox 99% on R/A; rk3 04/14 11:37 BP 151 / 73; Pulse 72; Resp 16; Pulse Ox 97% ; bp 04/10 19:12 Body Mass Index 41.01 (95.25 kg, 152.4 cm) tb4 04/10 16:25 Pain Scale: Adult ar8 17:45 Pain Scale: Adult ar8 18:17 Pain Scale: Adult ar8 19:12 Pain Scale: Adult tb4 04/11 06:12 Pain Scale: Adult tb4 04/12 06:57 Pain Scale: Adult tb4 07:50 Pain Scale: Adult ab3 09:31 Pain Scale: Adult em1 17:20 Pain Scale: Adult ab3 20:38 Pain Scale: Adult sd4 ED Course: 04/10 16:26 Patient arrived in ED. ss 16:28 Khris Mishra MD is Attending Physician. ethan 16:29 Inserted saline lock: 22 gauge in right antecubital area, using aseptic technique. ar8 Blood collected. Flushed with 10 mL NS. 16:31 Tarik Rojas, RN is Primary Nurse. ar8 16:38 Triage completed. ar8 16:38 Arm band placed on right wrist. ar8 16:39 Bed in low position. Call light in reach. Side rails up X2. Provided Education on: plan ar8 of care. Patient is placed in psych hold. Patient is placed in psych hold. Patient is placed in psych hold. 16:39 No provider procedures requiring assistance completed. ar8 17:57 faxed over clinical's to several facilities. [facility] 18[place] [facility] [place] bc6 19:28 Attending Physician role handed off by Khris Mishra MD sp4 19:28 Joaquín Garcia MD is Attending Physician. sp4 20:21 Door closed. tb4 04/11 08:11 Primary Nurse role handed off by Tarik Rojas, ROULA eb 10:02 Zohra Fitch, ROULA is Primary Nurse. ll1 19:41 Primary Nurse role handed off by Zohra Fitch RN dr5 20:12 sitter outside door. Door closed. Lights dimmed. tb4 20:12 No provider procedures requiring assistance completed. tb4 04/12 07:17 Radha Bradford, ROULA is Primary Nurse. ab3 07:25 Attending Physician role handed off by Joaquín Garcia MD rn 07:25 Zachariah Ramirez MD is Attending Physician. rn 07:50 No apparent distress. transfer. Safety Checks: Personal items have been removed. The ab3 door is open or patient has been placed in a hallway bed/chair. Sitter present at this time. 07:50 Patient is placed in psych hold. Pt remains in room in NAD with VSS, awaiting psych ab3 facility placement. Pt cotninues to report SI, but denies HI/AVH at present. Sitter remains at BS; area remains safe and free from hazards (see Q shift paper charting). 07:50 IV is patent, is intact. ab3 08:15 connected Denae Celeste from [facility] with Radha Celeste for nurse to nurse report. eb 08:40 administrative approval given by Elana Kennedy/ patient has been accepted to [facility]/ Dr. Harris Alexander has accepted the patient in transfer without consultation with the ED provider. 09:04 Denae Rn called from [facility] to cancel transfer / pt doesn't qualify to go eb to their facility at this time. 09:07 Repeat lab(s) drawn. by ED staff, sent to lab. ab3 09:14 BMP Sent. em1 09:17 initiated a transfer with Bessy from the [facility]. eb 09:22 received exclusionary packet from Bessy \\Lesa\\ [facility]. eb 09:40 faxed completed exclusionary forms to [facility] at [phone]. eb 11:35 No apparent distress. transfer approval from receiving facility. to BR and back to bed ab3 without incident, accompanied by sitter. Patient requests rest room assistance. 12:09 Joewajoselin from the [facility] / per Dr. Rojas the patient is not fit for their facility /. eb 15:57 Appears agitated. BR with sitter and back without incident. Patient requests rest room ab3 assistance. 19:07 Report given to ROULA Berger; ROULA Garcia out. ab3 19:33 Celine Ryan RN is Primary Nurse. sd4 19:58 Safety Checks: Personal items have been removed. The door is open or patient has been sd4 placed in a hallway bed/chair. Sitter present at this time. 20:07 IV is patent, is intact. 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 eb 19:19 Patient has correct armband on for positive identification. Bed in low position. sitter tb4 outside door. Door closed. Lights dimmed. Warm blanket given. 04/14 00:48 glucose:254 mg/dL. rk3 07:[address] [facility]. bd 07:53 pt accepted in transfer to [facility] by dr Yee admin approval bd given by Zohra Bowden. 11:38 IV discontinued, intact, bleeding controlled, No redness/swelling at site. Pressure bp dressing applied. Administered Medications: 04/10 17:03 Drug: NS 0.9% IV 1000 ml IV at 1 bolus Per protocol; to be given as a bolus over 60 ar8 minutes Route: IV; Rate: 1 bolus; Site: right antecubital; 20:38 Follow up: Response: No adverse reaction; IV Status: Completed infusion tb4 04/11 01:17 Drug: Insulin Regular Human Sub-Q 10 units Sub-Q once {Co-Signature: al5 (ralf Michelle RN).} Route: Sub-Q; Site: abdomen; 03:16 Follow up: Response: No adverse reaction; Blood sugar is lowered tb4 20:33 Drug: Acetaminophen PO 1000 mg PO once Route: PO; tb4 21:37 Follow up: Response: No adverse reaction; Pain is decreased tb4 22:03 Drug: Insulin Regular Human IVP 10 units IVP once {Co-Signature: [email or web address] (Jason Deleon4 RN).} Route: IVP; Site: right antecubital; 22:44 Follow up: Response: No adverse reaction; Blood sugar is lowered tb4 22:29 Drug: Insulin Glargine Sub-Q 30 units Sub-Q once {Co-Signature: lc1 (Nilam Acharya).} tb4 Route: Sub-Q; Site: abdomen; 22:44 Follow up: Response: No adverse reaction tb4 04/12 00:55 Drug: Keppra IV 1000 mg IV at calculated rate once Route: IV; Rate: calculated rate; tb4 Site: right antecubital; 01:35 Follow up: Response: No adverse reaction; IV Status: Completed infusion tb4 08:41 Drug: Insulin Regular Human Sub-Q 20 units Sub-Q once; Taken every morning ab3 {Co-Signature: [email or web address] (Mandi Rosas RN).} Route: Sub-Q; Site: right upper arm; 09:04 Follow up: Response: No adverse reaction ab3 08:43 Drug: Keppra PO 750 mg PO See Administration Instructions; Start 04/12/25 BID Route: PO; ab3 09:05 Follow up: Response: No adverse reaction ab3 20:35 Drug: Insulin Glargine Sub-Q 25 units Sub-Q See Administration Instructions; Take sd4 nightly {Co-Signature: [email or web address] (Jason Deleon RN).} Route: Sub-Q; Site: left upper arm; 04/14 11:38 Follow up: Response: No adverse reaction bp 04/13 09:18 Drug: Keppra PO 750 mg PO once Route: PO; ph 11:27 Follow up: Response: No adverse reaction ph 09:18 Drug: Insulin Glargine Sub-Q 15 units Sub-Q once {Co-Signature: af3 (Ludivina Landaverde RN).} ph Route: Sub-Q; Site: left upper arm; 11:27 Follow up: Response: No adverse reaction ph 23:17 Drug: Keppra PO 750 mg PO once; BID. First dose given this morning and second dose tb4 given now Route: PO; 04/14 00:39 Follow up: Response: No adverse reaction tb4 04/13 23:18 Drug: Insulin Regular Human Sub-Q 10 units Sub-Q once {Co-Signature: [email or web address] (Paradise Cole tb4 RN).} Route: Sub-Q; Site: abdomen; 04/14 02:56 Follow up: Response: No adverse reaction; Blood sugar is lowered; BGL 254 tb4 Medication: 04/10 16:39 VIS not applicable for this client. ar8 04/11 20:12 VIS not applicable for this client. tb4 Point of Care Testing: Blood Glucose: 03:27 Blood Glucose: 261 mg/dL; tb4 21:49 Blood Glucose: 428 mg/dL; tb4 22:35 Blood Glucose: 364 mg/dL; tb4 04/12 01:15 Blood Glucose: 302 mg/dL; tb4 04/13 21:29 Blood Glucose: 311 mg/dL; tb4 23:00 Blood Glucose: 254 mg/dL; tb4 Ranges: Intake: Outcome: 04/10 17:31 ER care complete, transfer ordered by MD. long 04/14 11:38 Transferred by ground EMS bp Condition: stable Instructed on the need for transfer, 11:41 Patient left the ED. bp Signatures: Theresa Hi Corey, MD MD cha Nieto, Roman, MD MD rn Martinez, Eric em1 Leena Deluca RN RN ss Nilam Acharya Patricia RN Abrahan Stevens ph RN RN Jennie Harris Lynsay RN RN ll1 Alba Garcia bc6 Joaquín Garcia MD MD sp4 Rdaha Bradford RN RN ab3 James Contreras, RECOVERY ASSISTANT-C RECOVERY ASSISTANT-Cdr5 Domo Gomez rk3 Destiny Mercado RN RN tb4 Celine Ryan RN RN sd4 Tarik Rojas RN RN ar8 Miguel Angel, Denae CELESTE al5 Jason Deleon RN4 Nilam Acharya Clarissa RN cm10 Ludivina Landaverde RN af3 Paradise Cole RN lg3 Corrections: (The following items were deleted from the chart) 04/12 08:51 08:26 Reassessment: Report given to ROULA Philippe at [facility] in [place]; RN ab3 states to callback with whether pt is accepted or not based on eGFR. ab3 08:55 08:15 connected Denae Rn with Radha Rn for nurse to nurse report eb eb 09:04 09:03 Repeat lab(s) drawn. by ED staff, sent to lab. ab3 ab3 09:07 09:03 Repeat lab(s) drawn. by ED staff, sent to lab. ab3 ab3 17:46 17:30 BP 153 / 66; Pulse 63bpm; Resp 16bpm; Pulse Ox 99% RA; Temp 97.7F; Pain 0/10, ab3 Adult; ab3 17:50 17:32 Reassessment: BG done; see result. Dinner safety tray given to pt' pt eating in ab3 NAD. Sitter remains at BS; area remains safe and free from hazards. ab3
[2025-04-10 17:49] LABS: ALT/SGPT 20 U/L (13-56); AST/SGOT 11 U/L (15-37); Albumin 2.2 g/dL (3.4-5.0); Albumin/Globulin Ratio 0.6 (1.1-1.8); Alkaline Phosphatase 66 U/L (45-117); Anion Gap 10.4 mEq/L (5.0-15.0); BUN Blood Urea Nitrogen 34 mg/dL (7-18); Globulin 3.4 g/dL (2.3-3.5); Glucose Level 371 mg/dL (74-106); Potassium 5.4 mEq/L (3.5-5.1)
[2025-04-10 18:02] LABS: Bilirubin Indirect, Calculated 0.0 mg/dL (0.2-0.8)
[2025-04-10 19:09] LABS: METHAMPHETAM NEGATIVE (NEGATIVE); THC Cannibis NEGATIVE (NEGATIVE)
[2025-04-10 19:18] LABS: Urine Crystals Unidentified Few /HPF (None Seen); Urine Culture Reflex Order NOT NEEDED; Urine Microscopic Reflex YN ORDER UMIC; Urine WBC Clump Rare /HPF (None Seen); Urine Yeast (Budding) Trace /HPF (None Seen)
[2025-04-10 20:42] LABS: Anion Gap 7.2 mEq/L (5.0-15.0); BUN Blood Urea Nitrogen 32.0 mg/dL (7-18); Glucose Level 370.0 mg/dL (74-106); Potassium 5.2 mEq/L (3.5-5.1)
[2025-04-11] MEDS ORDERED: INSULIN REGULAR (HUMAN) 100 UNIT/ML ONE ×2 (01:04→21:53)
[2025-04-11] MEDS ORDERED: ACETAMINOPHEN 500 MG TAB ONE (20:21)
[2025-04-11] MEDS ORDERED: INSULIN GLARGINE 100 UNIT/ML SQ ONE (22:20)
[2025-04-12] MEDS ORDERED: LEVETIRACETAM 500 MG/5 ML VIAL IV ONE (00:41)
[2025-04-12] MEDS ORDERED: NA CHLORIDE 0.9% 100 ML ONE (00:41)
[2025-04-12] MEDS ORDERED: levETIRAcetam 500 MG TAB ONE ×2 (08:31→20:18)
[2025-04-12] MEDS ORDERED: INSULIN REGULAR (HUMAN) 100 UNIT/ML ONE (08:33)
[2025-04-12 09:32] LABS: Anion Gap 8.6 mEq/L (5.0-15.0); BUN Blood Urea Nitrogen 24.0 mg/dL (7-18); Glucose Level 261.0 mg/dL (74-106); Potassium 4.6 mEq/L (3.5-5.1)
[2025-04-12] MEDS ORDERED: INSULIN GLARGINE 100 UNIT/ML SQ ONE (20:18)
[2025-04-13] MEDS ORDERED: INSULIN GLARGINE 100 UNIT/ML SQ ONE (08:52)
[2025-04-13] MEDS ORDERED: levETIRAcetam 500 MG TAB ONE ×2 (08:53→23:03)
[2025-04-13] MEDS ORDERED: INSULIN REGULAR (HUMAN) 100 UNIT/ML ONE (23:02)
[2025-04-14 12:44] VITALS: TEMP 98.3
[2025-04-14 12:45] VITALS: BP 151/73; O2SAT 97
== END 2025-04-14 11:41 ==
LOC: ER 16:24
DX: R45.851 Suicidal ideations (principal); F33.1 Major depressive disorder, recurrent, moderate; E11.9 Type 2 diabetes mellitus without complications; Z79.4 Long term (current) use of insulin; I10 Essential (primary) hypertension; Z89.511 Acquired absence of right leg below knee
CPT/HCPCS: 36415; 80048; 80076; 80143; 80179; 80307; 81001; 81025; 82077; 82550; 82947; 85025; 85610; 85730; 93005; 96361; 96365; 96372; 96375; 99285; J1815; J1953; J7030